=== PATIENT | female | born 1980 | race Caucasian/White ===

== ENCOUNTER → 2025-05-04 11:15 | Outpatient (REF) | payer OTHER, SELFPAY ==
[2025-05-04 19:20] LABS: Rubella Positive
[2025-05-06 10:18] LABS: Quantiferon Mitogen minus NIL 9.87 IU/mL; Quantiferon NIL 0.13 IU/mL; Quantiferon Plus TB1 minus NIL 0.01 IU/mL (<=0.34); Quantiferon Plus TB2 minus NIL 0.02 IU/mL (<=0.34); Quantiferon TB Gold Plus Negative (Negative)
[2025-05-06 13:41] LABS: Mumps Virus IgG Negative; Rubeola (Measles) IgG Positive; Varicella Zoster IgG (VZV) Positive
== END ==
LOC: OHS 11:15
PROVIDERS: ATTENDING PHYSICIAN Nurse Practitioner Family
DX: Z23 Encounter for immunization (principal)
CPT/HCPCS: 36415; 86480; 86735; 86762; 86765; 86787